=== PATIENT | male | born 1950 | race Caucasian/White ===

== ENCOUNTER 2020-12-11 09:22 | Outpatient (CLI) | payer MEDICARE, MEDICAID, SELFPAY | END 2020-12-11 09:23 | disposition home or self-care (01) | LOC: ANHBWCAUD 09:23 | DX: H91.93 Unspecified hearing loss, bilateral (principal) | CPT/HCPCS: 92557; 92567 ==

== ENCOUNTER 2023-12-19 08:12 | Outpatient (CLI) | payer MEDICARE, MEDICAID, SELFPAY | END 2023-12-19 08:13 | disposition home or self-care (01) | DX: H90.3 Sensorineural hearing loss, bilateral (principal) | CPT/HCPCS: 92557; 92567 ==